=== PATIENT | male | born 1950 | race Caucasian/White ===

== ENCOUNTER 2017-02-27 13:52 | Inpatient (IN) | payer MEDICARE, OTHER ==
[~2017-02-27] VITALS: Ht 181.9 cm; Wt 97.5 kg
[2017-02-28] MEDS ORDERED: NAPR220T95 PO (12:28)
[2017-03-13] MEDS ORDERED: INSULIN HUMAN REGULAR 1,000 UNITS/10 ML VIAL SQ PRN (06:15)
[2017-03-13] MEDS ORDERED: METOPROLOL TARTRATE 25 MG TAB PO PRN (06:15)
[2017-03-13] MEDS ORDERED: POVIDONE IODINE 5% (ANTISEPSIS KIT) 4 APPLICATIONS EACH NARE PRN (06:15)
[2017-03-13] MEDS ORDERED: SODIUM CHLORID 0.9% 500 ML IV PRN (06:15)
[2017-03-13] MEDS ORDERED: LACTATED RINGER'S 1000 ML IV PRN (06:15)
[2017-03-13] MEDS ORDERED: ceFAZolin 2 GM PREMIX 50 ML IV SCH (06:15)
[2017-03-13] MEDS ORDERED: VANCOMYCIN 1000 MG/NS 250 ML (for <70 kg) IV SCH ×2 (06:15)
[2017-03-13] MEDS ORDERED: CHLORHEXIDINE GLUCONATE 2 % 1 PACK (2 CLOTHS) TOPICAL PRN (06:15)
[2017-03-13] MEDS ORDERED: ALUMINUM/MAGNESIUM/SIMETH 30 ML CUP PO PRN (07:30)
[2017-03-13] MEDS ORDERED: MAGNESIUM HYDROXIDE SUSP 30 ML CUP PO PRN (07:30)
[2017-03-13] MEDS ORDERED: SODIUM CHLORIDE 0.9% FLUSH 10 ML FLUSH IV FLUSH PRN (07:30)
[2017-03-13] MEDS ORDERED: oxyCODONE/ACETAMINOPHEN 5 MG/325 MG TAB PO PRN (07:30)
[2017-03-13] MEDS ORDERED: MISCELLANEOUS NURSING INFORMATION XX PRN (07:30)
[2017-03-13] MEDS ORDERED: ONDANSETRON HCL 4 MG/2 ML VIAL IVP PRN (07:30)
[2017-03-13] MEDS ORDERED: MISCELLANEOUS PHARMACY INFORMATION XX ONE (07:30)
[2017-03-13] MEDS ORDERED: Post-op Orders (for Pharmacy) MISC XX ONE (07:30)
[2017-03-13] MEDS ORDERED: BISACODYL 10 MG SUPP RECTAL PRN (07:30)
[2017-03-13] MEDS ORDERED: NALOXONE HCL 0.4 MG/ML AMP IV PRN (07:30)
[2017-03-13] MEDS ORDERED: NEO-0.25 EACH NARE (07:42)
[2017-03-13 07:44] VITALS: BP 133/81; PULSE 66; RESP 20; TEMP 98.1; O2SAT 95
[2017-03-13] MEDS ORDERED: GENTAMICIN SULFATE 80 MG/2 ML VIAL ONE (08:18)
[2017-03-13] MEDS ORDERED: TRANEXAMIC ACID 1 GM PRIOR TO PROCEDURE IV SCH ×2 (09:00)
[2017-03-13] MEDS ORDERED: EXPAREL PERI-ARTICULAR INJECTION (TOTAL VOL. 60 ML) P-ARTICULR SCH ×2 (09:00)
--- NOTE | 2017-03-13 11:05 | PD.OP ---
Operative Report Preoperative Diagnosis: (1) Osteoarthritis of left knee Postoperative Diagnosis: (1) Osteoarthritis of left knee Procedure: Left Total Knee Arthroplasty Surgeon: Munir Zazueta MD Assessment Manager(s): Walt DOSS Operation and Findings: see dictation Munir Zazueta MD Mar 13, 2017 11:05
[2017-03-13] MEDS ORDERED: *morphine SULFATE 8 MG/ML PERIprocedure ONLY ONE (11:38)
[2017-03-13] MEDS: LACTATED RINGER'S 1000 ML INJ 1,000 ML IV SCH ×2 (11:45→21:18)
[2017-03-13] MEDS ORDERED: LACTATED RINGER'S 1000 ML INJ 1,000 ML IV ONE (12:00)
[2017-03-13] MEDS ORDERED: ePHEDrine/NS 25 MG/5 ML SYR IV ONE (12:00)
[2017-03-13] MEDS ORDERED: KETAMINE HCL 500 MG/10 ML VIAL IV ONE (12:00)
[2017-03-13] MEDS ORDERED: PROPOFOL 200 MG/20 ML AMP IV ONE (12:00)
[2017-03-13] MEDS ORDERED: TRANEXAMIC ACID IV SCH (12:00)
[2017-03-13] MEDS ORDERED: ONDANSETRON HCL 4 MG/2 ML VIAL IV PUSH ONE (12:00)
[2017-03-13] MEDS ORDERED: SODIUM CHLORIDE 0.9% IV SCH (12:00)
[2017-03-13] MEDS ORDERED: MIDAZOLAM HCL 2 MG/2 ML VIAL ONE (12:10)
[2017-03-13] MEDS: HYDROmorphone HCL PCA 6 MG/30 ML IV SCH ×2 (12:22→17:26)
[2017-03-13] MEDS ORDERED: BUPIVACAINE HCL PF 0.5% 30 ML VIAL NERV BLOCK ONE (12:49)
[2017-03-13] MEDS ORDERED: DO NOT ADM ANY ANTICOAGULANT DRUGS PRN (13:00)
--- NOTE | 2017-03-13 13:25 | RADRPT ---
EXAM DATE/TIME: 03/13/2017 13:51 [facility] COMPARISON: No previous studies available for comparison. INDICATIONS : Post op left knee. MEDICAL HISTORY : None. SURGICAL HISTORY : None. ENCOUNTER: Initial ACUITY: 1 day PAIN SCORE: 4/10 LOCATION: Left knee FINDINGS: Total knee arthroplasty is present. Hardware appears intact. Alignment is anatomic. CONCLUSION: Satisfactory appearance post left TKA Jaleel Zarate MD on March 13, 2017 at 13:23 Board Certified Radiologist. This report was verified electronically.
[2017-03-13] MEDS: ceFAZolin 2 GM PREMIX 50 ML IV SCH ×2 (14:00→21:17)
[2017-03-13] MEDS: PCA - TOTAL MG DILAUDID DELIVERED PER SHIFT OTHER SCH ×2 (14:00→21:18)
[2017-03-13 14:15] VITALS: BP 139/63; PULSE 73; RESP 19; TEMP 95.6; O2SAT 96
[2017-03-13 16:00] VITALS: BP 132/70; PULSE 72; RESP 18; TEMP 97; O2SAT 96
[2017-03-13] MEDS: SENNOSIDES 8.6 MG TAB PO SCH (16:45)
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
[2017-03-13 20:00] VITALS: BP 128/75; PULSE 87; RESP 22; TEMP 97.9; O2SAT 96
[2017-03-13] MEDS ORDERED: ZOLPIDEM TARTRATE 5 MG TAB PO PRN (21:00)
[2017-03-13] MEDS: SODIUM CHLORIDE 0.9% FLUSH 10 ML FLUSH IV FLUSH SCH (21:00)
[2017-03-14] VITALS: BP 124/70; PULSE 80; RESP 20; TEMP 97.8; O2SAT 95
[2017-03-14] MEDS: ceFAZolin 2 GM PREMIX 50 ML IV SCH (02:03)
[2017-03-14] MEDS: HYDROmorphone HCL PCA 6 MG/30 ML IV SCH ×3 (02:58→20:59)
[2017-03-14 04:00] VITALS: BP 131/71; PULSE 79; RESP 18; TEMP 99.8; O2SAT 95
[2017-03-14] MEDS: PCA - TOTAL MG DILAUDID DELIVERED PER SHIFT OTHER SCH ×3 (05:41→20:49)
[2017-03-14 08:00] VITALS: BP 158/67; PULSE 92; RESP 20; TEMP 100.8; O2SAT 92
[2017-03-14] MEDS: oxyCODONE/ACETAMINOPHEN 5 MG/325 MG TAB PO PRN ×3 (08:02→16:25)
[2017-03-14] MEDS: SODIUM CHLORIDE 0.9% FLUSH 10 ML FLUSH IV FLUSH SCH ×2 (08:03→20:05)
[2017-03-14] MEDS: LACTATED RINGER'S 1000 ML INJ 1,000 ML IV SCH ×2 (08:05→20:50)
[2017-03-14] MEDS: MULTIVITAMINS/MINERALS THERAPEUTIC TAB PO SCH ×2 (08:51→20:05)
[2017-03-14] MEDS: DOCUSATE SODIUM 100 MG CAP PO SCH ×2 (08:51→20:05)
[2017-03-14] MEDS: SENNOSIDES 8.6 MG TAB PO SCH (08:51)
[2017-03-14] MEDS ORDERED: WALKER WHEELS/F1 MIS (11:31)
[2017-03-14] MEDS ORDERED: MISC-163 (11:31)
[2017-03-14] MEDS ORDERED: CPMMACHINE (11:31)
--- NOTE | 2017-03-14 11:38 | HHI.FF ---
Face to Face Verification Diagnosis: (1) S/P total knee arthroplasty Physical Therapy Gait training Knee: Total knee, Protocol: Left, Full weight bearing Left LE Weight Bearing: WB as tolerated Left LE Range of Motion: Active Assistive ROM Nursing Dressing Changes: Do not change dressing I have seen patient Macario Pizano on 03/14/17. My clinical findings support the need for the requested home health care services because: High risk of falls I certify that my clinical findings support that this patient is homebound because: Post-op weakness Walt Boyd Mar 14, 2017 11:38
[2017-03-14] MEDS: RIVAROXABAN 10 MG TAB PO SCH (11:57)
[2017-03-14 12:00] VITALS: BP 161/73; PULSE 98; RESP 20; TEMP 99.6; O2SAT 93
[2017-03-14 12:32] LABS: HEMATOCRIT 37.8 % (39.0-51.0); MEAN CELL VOLUME 94.6 FL (80.0-100.0); MEAN CORPUSCULAR HEMOGLOBIN 31.3 PG (27.0-34.0); PLATELET COUNT 122 TH/MM3 (150-450); RED BLOOD COUNT 3.99 MIL/MM3 (4.50-5.90); RED CELL DISTRIBUTION WIDTH 13.8 % (11.6-17.2); REVIEW FLAG FINAL; WHITE BLOOD COUNT 11.3 TH/MM3 (4.0-11.0)
[2017-03-14 12:54] LABS: BICARBONATE 29.2 MEQ/L (21.0-32.0); MAGNESIUM 1.8 MG/DL (1.5-2.5); POTASSIUM 3.9 MEQ/L (3.5-5.1)
[2017-03-14 16:00] VITALS: BP 158/72; PULSE 98; RESP 20; TEMP 100.5; O2SAT 95
--- NOTE | 2017-03-14 16:18 | HHI.PR ---
Subjective Remarks The patient was complaining of severe pain in his left lower extremity. He said the IV was not functioning overnight so the ASSIGNMENT MANAGER medication was not delivered effectively. He currently rates his pain as a 9 out of 10 in severity. He said he was sort of able to work with physical therapy today. Discussed with nursing. Yana has been out successfully. Objective Vitals Vital Signs Date Time Temp Pulse Resp B/P Pulse Ox O2 Delivery O2 Flow Rate FiO2 03/14/17 16:00 100.5 98 20 158/72 95 03/14/17 12:00 99.6 98 20 161/73 93 03/14/17 08:55 17 03/14/17 08:00 100.8 92 20 158/67 92 03/14/17 08:00 95 Room Air 03/14/17 05:41 18 03/14/17 04:00 99.8 79 18 131/71 95 03/14/17 03:30 18 03/14/17 02:58 18 03/14/17 00:00 97.8 80 20 124/70 95 03/13/17 21:18 18 03/13/17 20:00 97.9 87 22 128/75 96 03/13/17 18:46 Room Air 03/13/17 17:26 17 I/O 03/13/17 03/13/17 03/13/17 03/14/17 03/14/17 03/14/17 07:00 15:00 23:00 07:00 15:00 23:00 Intake Total 1150 ml 1613 ml 780 ml 420 ml Output Total 1150 ml 550 ml 1700 ml 300 ml Balance 0 ml 1063 ml -920 ml 120 ml Intake Oral 50 ml 780 ml 780 ml 420 ml IV Total 200 ml 833 ml Other 900 ml Output Urine Total 1000 ml 550 ml 1700 ml 300 ml Estimated Blood Loss 150 ml # Bowel Movements 0 0 Result Diagram: 03/14/17 1142 03/14/17 1142 Imaging Last Impressions Knee X-Ray 03/13/17 0000 Signed Impressions: Service Date/Time: March 13:51 - CONCLUSION: Satisfactory appearance post left TKA Jaleel Zarate MD Objective Remarks GENERAL: This is a well-nourished, well-developed patient, uncomfortable. SKIN: No rashes, ecchymoses or lesions. Cool and dry. HEAD: Atraumatic. Normocephalic. No temporal or scalp tenderness. EYES: Pupils equal round and reactive. Extraocular motions intact. No scleral icterus. No injection or drainage. ENT: Nose without bleeding, purulent drainage or septal hematoma. Throat without erythema, tonsillar hypertrophy or exudate. Uvula midline. Airway patent. NECK: Trachea midline. No JVD or lymphadenopathy. Supple, nontender, no meningeal signs. CARDIOVASCULAR: Regular rate and rhythm without murmurs, gallops, or rubs. RESPIRATORY: Clear to auscultation. Breath sounds equal bilaterally. No wheezes , rales, or rhonchi. GASTROINTESTINAL: Abdomen soft, non-tender, nondistended. No hepato-splenomegaly , or palpable masses. No guarding. MUSCULOSKELETAL: Left knee bandaged and with limited ROM. NEUROLOGICAL: Awake and alert. Cranial nerves II through XII intact. Motor and sensory grossly within normal limits. Five out of 5 muscle strength in all muscle groups. Normal speech. PSYCH: Mood and affect appropriate. Procedures Left knee replacement 03/14. Medications and IVs Current Medications Medications (Trade) Dose Ordered Sig/Marine Route Start Time Stop Time Status Last Admin (Lr 1000 ml Inj) 1,000 ml @ 80 mls/hr [id number] IV 03/13/17 07:20 03/14/17 08:05 (NS Flush) 2 ml UNSCH PRN IV FLUSH 03/13/17 07:30 (NS Flush) 2 ml BID IV FLUSH 03/13/17 09:00 03/14/17 08:03 (Xarelto) 10 mg Q24H PO 03/14/17 10:30 03/14/17 11:57 Miscellaneous Information UNSCH PRN XX 03/13/17 07:30 (Percocet 5-325 Mg) 1 tab Q4H PRN PO 03/13/17 07:30 (Percocet 5-325 Mg) 2 tab Q4H PRN PO 03/13/17 07:30 03/14/17 12:01 (Tylenol) 650 mg Q6H PRN PO 03/13/17 07:30 (Theragran M Tab) 1 tab BID PO 03/14/17 09:00 05/13/17 08:59 03/14/17 08:51 (Zofran Inj) 4 mg Q6H PRN IVP 03/13/17 07:30 (Colace) 100 mg BID PO 03/14/17 09:00 03/14/17 08:51 (Mag-Al Plus Susp Liq) 30 ml Q6H PRN PO 03/13/17 07:30 (Ambien) 5 mg HS PRN PO 03/13/17 21:00 (Dulcolax Supp) 10 mg DAILY PRN RECTAL 03/13/17 07:30 (Milk Of Magnesia Liq) 30 ml DAILY PRN PO 03/13/17 07:30 (Narcan Inj) 0.4 mg UNSCH PRN IV 03/13/17 07:30 03/15/17 07:29 (Dilaudid ASSIGNMENT MANAGER Inj) 6 mg UNSCH IV 03/13/17 07:30 03/15/17 07:29 03/14/17 08:55 ASSIGNMENT MANAGER Dosage Infused (Pha) 1 Q8HR OTHER 03/13/17 07:30 03/15/17 07:29 03/14/17 05:41 (Senokot) 17.2 mg DAILY PO 03/13/17 16:45 03/14/17 08:51 A/P Assessment and Plan Osteoarthritis The patient is status post left knee replacement 03/13/17. He is having significant pain 03/14. - Wound care, weightbearing and anticoagulation per orthopedic surgery. - Pain control with a bowel regimen. Still on ASSIGNMENT MANAGER. - Incentive spirometry. - physical therapy. - Check CBC and BMP in a.m. Hypertension Blood pressure elevation exacerbated by severe pain. - pain control. - Vasotec as needed. Nicotine dependence The patient smokes half pack a day. - Cessation instruction. - The patient deferred a nicotine patch. PPx: Per orthopedic surgery. Discharge Planning Per primary. Kelvin Deutsch DO Mar 14, 2017 16:18
--- NOTE | 2017-03-14 18:40 | MP ---
cc: SARAH MATSON DATE OF SURGERY 03/13/17 PREOPERATIVE DIAGNOSIS Left knee severe osteoarthritis. POSTOPERATIVE DIAGNOSIS Left knee severe osteoarthritis. PROCEDURE Left total knee arthroplasty using [employer] Attune prosthesis cruciate-retaining, size seven femoral component, size eight rotating platform tibial component with an 8 mm polyethylene. ANESTHESIA Block and general SURGEON James Matson MD [employer] MERCHANDISING MANAGER SURGEON SELAM Villatoro ESTIMATED BLOOD LOSS 150 mL. DRAINS None. SPECIMEN Bony fragments discarded. COMPLICATIONS None known. TOURNIQUET TIME 60 minutes at 300 mmHg INDICATION Macario Pizano is a 66-year-old male with severe debilitating [id number] medial compartment osteoarthritis involving the patellofemoral and lateral compartment as well. He is indicated for a left total knee arthroplasty having failed conservative management. A detailed informed consent was obtained. The machinist first class, Walt Boyd, is an advanced registered nurse practitioner. His skill set was medically necessary for the performance of the operation. PROCEDURE IN DETAIL The patient was brought into the operating room and placed under an adductor canal block and anesthesia. The left lower extremity was prepped and draped in usual sterile fashion. IV antibiotics were given. Time-out was completed. The limb was exsanguinated, tourniquet inflated to 300 mmHg. A slightly medial midline incision was made and taken through the subcutaneous tissue. Hemostasis was obtained with the use of electrocautery. A medial parapatellar Trivector type approach was used with partial split into the vastus medialis. We did subperiosteal dissection proximal tibia and resected a good portion of the fat pad. We measured the patella at 24.5 mm to trim this back to 14.5 mm, sized it to size 38. We proceeded to use intramedullary guide on the femur in 5 degree angle and a 10 mm resection and then measured the femur, size seven. Size seven cutting block. Anterior and posterior chamfer cuts made. Sulcus cut made. The tibia ACL was resected and the tibia subluxed anteriorly. We used an extramedullary guide on the tibia, 3 mm cut medially, removed posterior osteophyte, removed meniscal fragments. Imbalance to the ligaments noted with the medial collateral being tight and a partial release off of the tibia was performed. We then proceeded to size the tibia, size 8. Then we trialed and ultimately the size 8 mm polyethylene was most appropriate. We made our patella cuts. Excellent tracking of the patella. These are the components placed on the field. We had full extension and gravity flexion to 130 degrees. Pulse lavage antibiotic irrigation as the cement was mixed, pressurized cement to the tibia. Tibial component placed, residual cement removed, polyethylene placed, femoral component placed, residual cement removed, patellar component placed with the knee in full extension and a patellar clamp was used. Then we proceeded to go about the size of the prosthesis and then proceeded to inject our long-term numbing medication. Then at 10 minutes we let the tourniquet down. We irrigated out with copious amounts of irrigation. Meticulous hemostasis. We proceeded to close in layers of absorbable sutures, subcuticular on the skin. Steri-Strips applied. Sterile dressing applied. The patient was awaken and returned to the recovery room in stable condition. MD BRONSON Fuentes/ /11:19 AM /6:22 PM
--- NOTE | 2017-03-14 19:23 | PD.ORT.PN ---
Subjective Subjective Remarks Patient c/o left knee pain. Patient states yesterday he walked several laps around the floor and might of over did it. Using FITTER HELPER and Percocet. Pain level 8/ 10. at bedside. Objective Vitals Vital Signs Date Time Temp Pulse Resp B/P Pulse Ox O2 Delivery O2 Flow Rate FiO2 03/14/17 16:00 100.5 98 20 158/72 95 03/14/17 14:00 17 03/14/17 12:00 99.6 98 20 161/73 93 03/14/17 08:55 17 03/14/17 08:00 100.8 92 20 158/67 92 03/14/17 08:00 95 Room Air 03/14/17 05:41 18 03/14/17 04:00 99.8 79 18 131/71 95 03/14/17 03:30 18 03/14/17 02:58 18 03/14/17 00:00 97.8 80 20 124/70 95 03/13/17 21:18 18 03/13/17 20:00 97.9 87 22 128/75 96 I/O 03/13/17 03/13/17 03/13/17 03/14/17 03/14/17 03/14/17 06:59 14:59 22:59 06:59 14:59 22:59 Intake Total 1150 ml 1613 ml 780 ml 420 ml 830 ml Output Total 1150 ml 550 ml 1700 ml 300 ml Balance 0 ml 1063 ml -920 ml 120 ml 830 ml Intake Oral 50 ml 780 ml 780 ml 420 ml IV Total 200 ml 833 ml 830 ml Other 900 ml Output Urine Total 1000 ml 550 ml 1700 ml 300 ml Estimated Blood Loss 150 ml # Bowel Movements 0 0 Result Diagram: 03/14/17 1142 03/14/17 1142 Procedures Left Total Knee Arthroplasty Objective Remarks Left knee sanjay wrap in place C/D/I calves soft negative Homans NVI Assessment & Plan Assessment and Plan Left Total Knee Arthroplasty POD #1 PLAN: Pain management - FITTER HELPER and Percocet DVT prophylaxis - Xarelto Physical therapy - weight bearing as tolerated Leave dressing in place x 2 weeks. If there is significant drainage, remove dressing. Clean with alcohol and apply a new dry dressing daily. Discharge planning - anticipating Home with [facility] Friday F/U in [address] Zazueta or SELAM in office. Walt Boyd Mar 14, 2017 19:23
[2017-03-14] MEDS ORDERED: XARE10TA PO (19:28)
[2017-03-14] MEDS ORDERED: OXYC1TAB63 PO (19:28)
[2017-03-14 21:28] VITALS: BP 154/82; PULSE 98; RESP 22; TEMP 98.4; O2SAT 98
[2017-03-15 00:20] VITALS: BP 155/84; PULSE 103; RESP 22; TEMP 99.4; O2SAT 94
[2017-03-15] MEDS: oxyCODONE/ACETAMINOPHEN 5 MG/325 MG TAB PO PRN ×4 (01:20→16:56)
[2017-03-15] MEDS: PCA - TOTAL MG DILAUDID DELIVERED PER SHIFT OTHER SCH (04:42)
[2017-03-15 07:58] LABS: HEMATOCRIT 38.3 % (39.0-51.0); MEAN CELL VOLUME 94.8 FL (80.0-100.0); MEAN CORPUSCULAR HEMOGLOBIN 31.5 PG (27.0-34.0); MEAN CORPUSCULAR HGB CONC 33.2 % (32.0-36.0); PLATELET COUNT 108 TH/MM3 (150-450); RED BLOOD COUNT 4.04 MIL/MM3 (4.50-5.90); RED CELL DISTRIBUTION WIDTH 13.4 % (11.6-17.2); REVIEW FLAG FINAL; WHITE BLOOD COUNT 11.5 TH/MM3 (4.0-11.0)
[2017-03-15 08:24] VITALS: BP 151/74; PULSE 99; RESP 16; TEMP 100.8; O2SAT 96
[2017-03-15] MEDS: MULTIVITAMINS/MINERALS THERAPEUTIC TAB PO SCH ×2 (08:43→20:21)
[2017-03-15] MEDS: SENNOSIDES 8.6 MG TAB PO SCH (08:43)
[2017-03-15] MEDS: DOCUSATE SODIUM 100 MG CAP PO SCH ×2 (08:43→20:21)
[2017-03-15] MEDS: SODIUM CHLORIDE 0.9% FLUSH 10 ML FLUSH IV FLUSH SCH ×2 (08:45→20:21)
--- NOTE | 2017-03-15 09:07 | PD.ORT.PN ---
Subjective Post Op Day #: 2 Subjective Remarks Patient sitting upright comfortably in bed. Admits left knee pain is well controlled. Admits to walking yesterday. He feels ready for discharge today with home health. No new complaints. Objective Vitals Vital Signs Date Time Temp Pulse Resp B/P Pulse Ox O2 Delivery O2 Flow Rate FiO2 03/15/17 04:42 20 03/15/17 00:20 99.4 103 22 155/84 94 03/14/17 21:28 98.4 98 22 154/82 98 03/14/17 20:59 21 03/14/17 20:49 19 03/14/17 16:00 100.5 98 20 158/72 95 03/14/17 14:00 17 03/14/17 12:00 99.6 98 20 161/73 93 I/O 03/14/17 03/14/17 03/14/17 03/15/17 03/15/17 03/15/17 07:00 15:00 23:00 07:00 15:00 23:00 Intake Total 780 ml 1250 ml 320 ml Output Total 1700 ml 300 ml 900 ml Balance -920 ml 950 ml -580 ml Intake Oral 780 ml 420 ml 320 ml IV Total 830 ml Output Urine Total 1700 ml 300 ml 900 ml # Bowel Movements 0 0 Result Diagram: 03/15/17 0716 03/14/17 1142 Imaging Last Impressions Knee X-Ray 03/13/17 0000 Signed Impressions: Service Date/Time: March 13:51 - CONCLUSION: Satisfactory appearance post left TKA Jaleel Zarate MD Procedures Left Total Knee Arthroplasty Objective Remarks Left knee sanjay wrap in place C/D/I calves soft negative Homans NVI Assessment & Plan Ortho Post Op Day #: 2 Problem List: (1) Osteoarthritis of left knee (2) S/P total knee arthroplasty Assessment and Plan Left Total Knee Arthroplasty POD #2 PLAN: Pain management - Percocet DVT prophylaxis - Xarelto Physical therapy - weight bearing as tolerated Leave dressing in place x 2 weeks. If there is significant drainage, remove dressing. Clean with alcohol and apply a new dry dressing daily. Discharge planning - ready to discharge Home with [facility] today F/U in [address] Zazueta or SELAM in office. Nelda Garay Mar 15, 2017 09:07
[2017-03-15] MEDS: LACTATED RINGER'S 1000 ML INJ 1,000 ML IV SCH ×2 (09:20→21:50)
--- NOTE | 2017-03-15 09:48 | RADRPT ---
EXAM DATE/TIME: 03/15/2017 08:51 [facility] COMPARISON: CHEST PA & LAT, February 28, 2017, 12:19. INDICATIONS : Fever. MEDICAL HISTORY : None. SURGICAL HISTORY : None. ENCOUNTER: Initial ACUITY: 2 days PAIN SCORE: 0/10 LOCATION: Bilateral chest FINDINGS: There is discoid atelectasis in the right midlung. There is no appreciable pleural effusion for tech nique. Heart and mediastinum are unremarkable. CONCLUSION: Right lung atelectasis. Jose Patino MD on March 15, 2017 at 9:46 Board Certified Radiologist. This report was verified electronically.
[2017-03-15 10:52] LABS: BACTERIA, URINE OCC /hpf; BLOOD, URINE MOD (NEG); COMMENT (UR) CULT NOT INDICATED; CULTURE IF INDICATED CULT NOT INDICATED; GLUCOSE,URINE NEG (NEG); HYALINE CAST, URINE 1 /lpf (RARE); KETONE, URINE 40 mg/dL (NEG); MUCUS URINE FEW /lpf (OCC); NITRITE,URINE NEG (NEG); TRANSITIONAL EPI CELLS, URINE <1 /hpf; URINE COLOR YELLOW (YELLW/STRAW)
[2017-03-15] MEDS: RIVAROXABAN 10 MG TAB PO SCH (11:15)
[2017-03-15 12:00] VITALS: BP 141/71; PULSE 97; RESP 17; TEMP 99.1; O2SAT 96
[2017-03-15] MEDS: POLYETHYLENE GLYCOL 17 GM PKG PO SCH (12:45)
[2017-03-15] MEDS ORDERED: HYDROmorphone HCL PF 1 MG/ML VIAL IV PUSH PRN (12:45)
--- NOTE | 2017-03-15 13:41 | HHI.PR ---
Subjective Remarks The patient complained of significant pain. He said he was unprepared to go home with pain like this. He said the knee mobilizer was bothering him as well. She would like that her dose of pain medication. Family at the bedside. Discussed with nursing. Objective Vitals Vital Signs Date Time Temp Pulse Resp B/P Pulse Ox O2 Delivery O2 Flow Rate FiO2 03/15/17 12:00 99.1 97 17 141/71 96 03/15/17 09:43 18 03/15/17 08:30 96 Room Air 03/15/17 08:24 100.8 99 16 151/74 96 03/15/17 04:42 20 03/15/17 00:20 99.4 103 22 155/84 94 03/14/17 21:28 98.4 98 22 154/82 98 03/14/17 20:59 21 03/14/17 20:49 19 03/14/17 16:00 100.5 98 20 158/72 95 03/14/17 14:00 17 I/O 03/14/17 03/14/17 03/14/17 03/15/17 03/15/17 03/15/17 07:00 15:00 23:00 07:00 15:00 23:00 Intake Total 780 ml 1250 ml 320 ml Output Total 1700 ml 300 ml 900 ml Balance -920 ml 950 ml -580 ml Intake Oral 780 ml 420 ml 320 ml IV Total 830 ml Output Urine Total 1700 ml 300 ml 900 ml # Bowel Movements 0 0 Result Diagram: 03/15/17 0716 03/14/17 1142 Imaging Last Impressions Chest X-Ray 03/15/17 0000 Signed Impressions: Service Date/Time: Wednesday, March 15, 2017 08:51 - CONCLUSION: Right lung atelectasis. Jose Patino MD Knee X-Ray 03/13/17 0000 Signed Impressions: Service Date/Time: March 13:51 - CONCLUSION: Satisfactory appearance post left TKA Jaleel Zarate MD Objective Remarks GENERAL: This is a well-nourished, well-developed patient, uncomfortable. SKIN: No rashes, ecchymoses or lesions. Cool and dry. HEAD: Atraumatic. Normocephalic. No temporal or scalp tenderness. EYES: Pupils equal round and reactive. Extraocular motions intact. No scleral icterus. No injection or drainage. ENT: Nose without bleeding, purulent drainage or septal hematoma. Throat without erythema, tonsillar hypertrophy or exudate. Uvula midline. Airway patent. NECK: Trachea midline. No JVD or lymphadenopathy. Supple, nontender, no meningeal signs. CARDIOVASCULAR: Regular rate and rhythm without murmurs, gallops, or rubs. RESPIRATORY: Clear to auscultation. Breath sounds equal bilaterally. No wheezes , rales, or rhonchi. GASTROINTESTINAL: Abdomen soft, non-tender, nondistended. No hepato-splenomegaly , or palpable masses. No guarding. MUSCULOSKELETAL: Left knee bandaged and in mobilizer. NEUROLOGICAL: Awake and alert. Cranial nerves II through XII intact. Motor and sensory grossly within normal limits. Five out of 5 muscle strength in all muscle groups. Normal speech. PSYCH: Mood and affect appropriate. Procedures Left knee replacement 03/13. Medications and IVs Current Medications Medications (Trade) Dose Ordered Sig/[facility] Route Start Time Stop Time Status Last Admin (Lr 1000 ml Inj) 1,000 ml @ 80 mls/hr [id number] IV 03/13/17 07:20 03/14/17 08:05 (NS Flush) 2 ml UNSCH PRN IV FLUSH 03/13/17 07:30 (NS Flush) 2 ml BID IV FLUSH 03/13/17 09:00 03/15/17 08:45 (Xarelto) 10 mg Q24H PO 03/14/17 10:30 03/15/17 11:15 Miscellaneous Information UNSCH PRN XX 03/13/17 07:30 (Percocet 5-325 Mg) 1 tab Q4H PRN PO 03/13/17 07:30 (Percocet 5-325 Mg) 2 tab Q4H PRN PO 03/13/17 07:30 03/15/17 12:19 (Tylenol) 650 mg Q6H PRN PO 03/13/17 07:30 (Theragran M Tab) 1 tab BID PO 03/14/17 09:00 05/13/17 08:59 03/15/17 08:43 (Zofran Inj) 4 mg Q6H PRN IVP 03/13/17 07:30 (Colace) 100 mg BID PO 03/14/17 09:00 03/15/17 08:43 (Mag-Al Plus Susp Liq) 30 ml Q6H PRN PO 03/13/17 07:30 (Ambien) 5 mg HS PRN PO 03/13/17 21:00 (Dulcolax Supp) 10 mg DAILY PRN RECTAL 03/13/17 07:30 (Milk Of Magnesia Liq) 30 ml DAILY PRN PO 03/13/17 07:30 (Senokot) 17.2 mg DAILY PO 03/13/17 16:45 03/15/17 08:43 (Dilaudid Pf Inj) 0.5 mg Q6H PRN IV PUSH 03/15/17 12:45 (Miralax) 17 gm DAILY PO 03/15/17 12:45 03/15/17 12:45 A/P Assessment and Plan Osteoarthritis The patient is status post left knee replacement 03/13/17. He is having significant pain 03/14. - Wound care, weightbearing and anticoagulation per orthopedic surgery. - Pain control with a bowel regimen. Add low-dose Dilaudid for breakthrough pain. Toradol if needed. - Incentive spirometry. - physical therapy. Hypertension Blood pressure exacerbated by severe pain. - pain control. - Vasotec as needed. Nicotine dependence The patient smokes half pack a day. - Cessation instruction. - The patient deferred a nicotine patch. PPx: Per orthopedic surgery. Discharge Planning Per primary. Kelvin Deutsch DO Mar 15, 2017 13:41
[2017-03-15 16:46] VITALS: BP 117/71; PULSE 113; RESP 16; TEMP 99; O2SAT 95
[2017-03-15] MEDS: HYDROmorphone HCL 2 MG TAB PO PRN (20:21)
[2017-03-15 20:23] VITALS: BP 111/72; PULSE 106; RESP 16; TEMP 97.4; O2SAT 97
[2017-03-16 00:02] VITALS: BP 129/73; PULSE 110; RESP 17; TEMP 99.8; O2SAT 96
[2017-03-16] MEDS: HYDROmorphone HCL 2 MG TAB PO PRN ×5 (00:25→16:43)
[2017-03-16 04:41] VITALS: TEMP 99.4
[2017-03-16 07:43] LABS: AUTOMATED NEUTROPHIL # 9.2 TH/MM3 (1.8-7.7); BASOPHIL % 0.2 % (0.0-2.0); EOSINOPHIL % 0.1 % (0.0-4.0); HEMATOCRIT 38.4 % (39.0-51.0); HEMO FLAGS DIFF FINAL; LYMPH % 12.6 % (9.0-44.0); LYMPHOCYTE # 1.5 TH/MM3 (1.0-4.8); MEAN CELL VOLUME 95.3 FL (80.0-100.0); MEAN CORPUSCULAR HEMOGLOBIN 31.8 PG (27.0-34.0); MEAN CORPUSCULAR HGB CONC 33.3 % (32.0-36.0); MONO % 10.8 % (0.0-8.0); NEUT % 76.3 % (16.0-70.0); PLATELET COUNT 111 TH/MM3 (150-450); RED BLOOD COUNT 4.02 MIL/MM3 (4.50-5.90); RED CELL DISTRIBUTION WIDTH 13.1 % (11.6-17.2)
[2017-03-16 08:00] VITALS: BP_SYST 112; BP_SYST 129; BP_DIAS 59; BP_DIAS 74; PULSE 114; RESP 18; TEMP 100.5; O2SAT 95
[2017-03-16] MEDS: SENNOSIDES 8.6 MG TAB PO SCH (08:16)
[2017-03-16] MEDS: MULTIVITAMINS/MINERALS THERAPEUTIC TAB PO SCH (08:16)
[2017-03-16] MEDS: ACETAMINOPHEN 325 MG TAB PO PRN ×3 (08:17→16:42)
[2017-03-16] MEDS: POLYETHYLENE GLYCOL 17 GM PKG PO SCH (08:18)
[2017-03-16] MEDS: DOCUSATE SODIUM 100 MG CAP PO SCH (08:18)
--- NOTE | 2017-03-16 08:42 | PD.ORT.PN ---
Subjective Post Op Day #: 3 Subjective Remarks Patient sitting upright in chair. Left knee pain was not well controlled yesterday - pain medication was adjusted. He does not feel ready for discharge today. No new complaints. Objective Vitals Vital Signs Date Time Temp Pulse Resp B/P Pulse Ox O2 Delivery O2 Flow Rate FiO2 03/16/17 04:41 99.4 03/16/17 00:02 99.8 110 17 129/73 96 03/15/17 20:23 97.4 106 16 111/72 97 03/15/17 20:00 97 Room Air 03/15/17 16:46 99.0 113 16 117/71 95 03/15/17 14:48 18 03/15/17 14:09 18 03/15/17 13:19 18 03/15/17 12:00 99.1 97 17 141/71 96 I/O 03/15/17 03/15/17 03/15/17 03/16/17 03/16/17 03/16/17 07:00 15:00 23:00 07:00 15:00 23:00 Intake Total 320 ml 720 ml 480 ml Output Total 900 ml 1275 ml Balance -580 ml -555 ml 480 ml Intake Oral 320 ml 720 ml 480 ml Output Urine Total 900 ml 1275 ml # Voids 2 # Bowel Movements 0 Result Diagram: 03/16/17 0715 03/14/17 1142 Imaging Last Impressions Knee X-Ray 03/13/17 0000 Signed Impressions: Service Date/Time: March 13:51 - CONCLUSION: Satisfactory appearance post left TKA Jaleel Zarate MD Procedures Left Total Knee Arthroplasty Objective Remarks Left knee sanjay wrap in place - dressing saturated calves soft negative Homans NVI Assessment & Plan Ortho Post Op Day #: 3 Problem List: (1) Osteoarthritis of left knee (2) S/P total knee arthroplasty Assessment and Plan Left Total Knee Arthroplasty POD #3 PLAN: Pain management - changed to 2mg Dilaudid in combination with Tylenol. DVT prophylaxis - Xarelto Physical therapy - weight bearing as tolerated Leave dressing in place x 2 weeks. If there is significant drainage, remove dressing. Clean with alcohol and apply a new dry dressing daily. - change dressing today Discharge planning - ready to discharge Home with [facility], most likely tomorrow once pain is better controlled. F/U in [address] Zazueta or SELAM in office. Nelda Garay Mar 16, 2017 08:42
[2017-03-16] MEDS: SODIUM CHLORIDE 0.9% FLUSH 10 ML FLUSH IV FLUSH SCH (09:00)
[2017-03-16] MEDS: RIVAROXABAN 10 MG TAB PO SCH (10:29)
[2017-03-16 12:10] VITALS: BP 102/70; PULSE 96; RESP 16; TEMP 97.6; O2SAT 99
--- NOTE | 2017-03-24 16:08 | MD ---
cc: SARAH MATSON M.D. ADMISSION DATE: 03/13/2017 DISCHARGE DATE: 03/16/2017 ADMISSION DIAGNOSIS Left knee severe osteoarthritis. PROCEDURE Left total knee arthroplasty. BRIEF HISTORY The patient is a 66-year-old male with severe debilitating [id number] left knee osteoarthritis involving the patellofemoral and lateral compartment as well and the medial compartment. He is indicated for a left total knee arthroplasty having failed conservative management. He underwent preoperative clearance. Surgical consent was signed. HOSPITAL COURSE He came in through [facility], underwent surgery without complication. He was maintained for 23 hours of IV antibiotics. He was initiated with DVT prophylaxis. Medical consultation was obtained, physical therapy consultation was obtained. He was transitioned from IV to p.o. pain medication. He did well during the hospitalization, did not have complications. DISPOSITION On postoperative day #3 he was discharged. Labs and vital signs remained stable. He was discharged home with home health care for continuation of rehabilitation. He was to continue on standard medication as well as prescription for Percocet for pain management, Xarelto for DVT prophylaxis, continue on a regular diet with followup scheduled in the office in 2 weeks. Dictated by: SELAM Herrera MD BRONSON Fuentes/KEN /8:59 AM /4:07 PM
== END 2017-03-16 17:23 | disposition home health service (06) | DRG 470 ==
LOC: HSDI 03-13 05:43 → N06B 03-13 14:32
PROVIDERS: ADMIT Orthopaedic Surgery Sports Medicine; ATTEND Orthopaedic Surgery Sports Medicine
PROC: 0QRF0JZ Replacement of Left Patella with Synthetic Substitute, Open Approach (ICD-10-PCS; 2017-03-13)
PROC: 0SRD0J9 Replacement of Left Knee Joint with Synthetic Substitute, Cemented, Open Approach (ICD-10-PCS; principal; 2017-03-13 08:42)
DX: M17.12 Unilateral primary osteoarthritis, left knee (principal); I10 Essential (primary) hypertension; F17.210 Nicotine dependence, cigarettes, uncomplicated
CPT/HCPCS: 71010; 73560; 80048; 81001; 83735; 85025; 85027; 86850; 86900; 86901; 94150; C1776; C9290; J0690; J1170; J1580; J2250; J2270; J2405; J3370; J7050; J7120; L1830

== ENCOUNTER → 2017-02-28 | Outpatient (CLI) | payer MEDICARE, OTHER ==
[~2017-02-28] MED LIST: CPMMACHINE; MISC-163; NAPR220T95 PO; NEO-0.25 EACH NARE; OXYC1TAB63 PO; WALKER WHEELS/F1 MIS; XARE10TA PO
[2017-02-28 12:38] LABS: HDL CHOLESTEROL 44.4 MG/DL (40.0-60.0)
== END ==
LOC: CLAB 11:18
PROVIDERS: ATTEND Family Medicine
DX: Z01.818 Encounter for other preprocedural examination (principal); Z12.5 Encounter for screening for malignant neoplasm of prostate
CPT/HCPCS: 80061; 84153; 84443

== ENCOUNTER → 2017-02-28 | Outpatient (CLI) | payer MEDICARE, OTHER ==
[2017-02-28 12:06] LABS: AUTOMATED NEUTROPHIL # 5.4 TH/MM3 (1.8-7.7); BASOPHIL % 0.5 % (0.0-2.0); EOSINOPHIL # 0.1 TH/MM3 (0-0.4); EOSINOPHIL % 0.9 % (0.0-4.0); HEMATOCRIT 47.2 % (39.0-51.0); HEMO FLAGS DIFF FINAL; LYMPH % 26.4 % (9.0-44.0); LYMPHOCYTE # 2.2 TH/MM3 (1.0-4.8); MEAN CELL VOLUME 93.7 FL (80.0-100.0); MEAN CORPUSCULAR HEMOGLOBIN 32.4 PG (27.0-34.0); MEAN CORPUSCULAR HGB CONC 34.6 % (32.0-36.0); MONO % 8.3 % (0.0-8.0); NEUT % 63.9 % (16.0-70.0); PLATELET COUNT 164 TH/MM3 (150-450); RED BLOOD COUNT 5.04 MIL/MM3 (4.50-5.90); RED CELL DISTRIBUTION WIDTH 13.8 % (11.6-17.2); WHITE BLOOD COUNT 8.4 TH/MM3 (4.0-11.0)
[2017-02-28 12:12] LABS: BLOOD, URINE SMALL (NEG); COMMENT (UR) CULT NOT INDICATED; CULTURE IF INDICATED CULT NOT INDICATED; GLUCOSE,URINE NEG (NEG); KETONE, URINE NEG (NEG); MUCUS URINE FEW /lpf (OCC); NITRITE,URINE NEG (NEG); PH, URINE 5.5 (5.0-8.5); URINE COLOR YELLOW (YELLW/STRAW)
[2017-02-28 12:14] LABS: APTT (PATIENT) 32.6 SEC (24.3-30.1); PROTHROMBIN TIME - PATIENT 11.5 SEC (9.8-11.6)
[2017-02-28 12:30] LABS: ALKALINE PHOSPHATASE 87 U/L (45-117); ALT (GPT) 24 U/L (12-78); ANION GAP 7 MEQ/L (5-15); AST (GOT) 12 U/L (15-37); BICARBONATE 27.3 MEQ/L (21.0-32.0); BLOOD UREA NITROGEN 15 MG/DL (7-18); CHLORIDE 105 MEQ/L (98-107); GLOMERULAR FILTRATION RATE 81 ML/MIN (>89); GLUCOSE,FASTING 87 MG/DL (74-99); POTASSIUM 4.3 MEQ/L (3.5-5.1); SODIUM (NA) 139 MEQ/L (136-145); TOTAL BILIRUBIN ADULT 0.5 MG/DL (0.2-1.0)
--- NOTE | 2017-02-28 13:29 | RADRPT ---
EXAM DATE/TIME: 02/28/2017 12:19 [facility] COMPARISON: No previous studies available for comparison. INDICATIONS : Evaluate for pneumonia, pneumothorax, or communicable disease. MEDICAL HISTORY : None. SURGICAL HISTORY : None. ENCOUNTER: Initial ACUITY: 1 day PAIN SCORE: 0/10 LOCATION: chest FINDINGS: The cardiac silhouette is normal in transverse diameter. The lungs are free of acute parenchymal opac ity. No effusions are identified. The aortic knob is prominent with tortuosity of the descending thor acic aorta. CONCLUSION: 1. No acute cardiopulmonary disease. Ashkan Escudero MD on February 28, 2017 at 13:27 Board Certified Radiologist. This report was verified electronically.
--- NOTE | 2017-03-04 10:27 | EKG ---
Date Performed: 02/28/2017 Time Performed: 11:59:49 PTAGE: 66 years EKG: SINUS BRADYCARDIA BORDERLINE ECG NO PREVIOUS TRACING DOCTOR: Catrachita Boo Interpretating Date/Time 03/04/2017 10:24:48
== END ==
LOC: CPRE 10:59
PROVIDERS: ATTEND Orthopaedic Surgery Sports Medicine
DX: Z01.810 Encounter for preprocedural cardiovascular examination (principal); Z01.811 Encounter for preprocedural respiratory examination; Z01.812 Encounter for preprocedural laboratory examination; Z96.60 Presence of unspecified orthopedic joint implant; M79.609 Pain in unspecified limb; Z01.818 Encounter for other preprocedural examination; Z12.5 Encounter for screening for malignant neoplasm of prostate
CPT/HCPCS: 36415; 71020; 80053; 80061; 81001; 84153; 84443; 85025; 85610; 85730; 93005